=== PATIENT | female | born 1985 | race Caucasian/White ===

== ENCOUNTER 2017-06-02 11:32 | Emergency (ER) | payer BC ==
[2017-06-02] MEDS ORDERED: Tetan/Diph/Pertus SYR(Tdap)* 0.5 ML SYR(BOOSTRIX) use SYR IM ONE (12:03)
[2017-06-02] MEDS ORDERED: Lidocaine/Epineph/Tetraca SOL* (LET solution) 4 ML BTL TOPICAL ONE (12:13)
[2017-06-02] MEDS ORDERED: Lidocaine 2% 10 ML* VIAL INJ ONE (12:14)
[2017-06-02] MEDS ORDERED: Lidocaine 2% PF * 5 ML VIAL IV ONE (12:30)
--- NOTE | 2017-06-02 12:51 | RAD ---
HISTORY: Left forearm penetrating trauma COMPARISONS: None VIEWS: 2, Frontal and lateral views of the left forearm FINDINGS: BONE DENSITY: Normal. BONES: There is no displaced fracture. JOINTS: There is no arthropathy. ALIGNMENT: There is no dislocation. SOFT TISSUES: There is subcutaneous emphysema along the proximal medial forearm OTHER FINDINGS: None. IMPRESSION: SUBCUTANEOUS EMPHYSEMA. NO ACUTE OSSEOUS INJURY. IF SYMPTOMS PERSIST, RECOMMEND REPEAT IMAGING.
--- NOTE | 2017-06-02 13:25 | UC ---
Bite Injury/Animal HPI - HPI Summary HPI Summary: Patient present s/p dog bite from her dog, on the left forearm, puncture wound present, bleeding controlled, no numbness or decreased range of motion. She states she was at [employer] and he bite her. She reports the dog vaccine are up to date. - History of Current Complaint Chief Complaint: UCBiteInjury Stated Complaint: DOG BITE L ARM Time Seen by Provider: 06/02/17 12:02 Hx Obtained From: Patient Hx Last Menstrual Period: IUD ?: No Severity Currently: Moderate Severity Initially: Moderate Onset/Duration: Sudden Onset, Lasting Hours Type of Bite: Animal Has Animal Been Immunized?: Yes Character: Puncture, Full-Thickness, Abrasion/Laceration Associated Signs And Symptoms: Positive: Negative Animal Available for Observation: Yes Animal Control Notified: Yes - Risk Factors Infection/Sepsis Risk Factors: Negative - Allergies/Home Medications Allergies/Adverse Reactions: Allergies Allergy/AdvReac Type Severity Reaction Status Date / Time Codeine Allergy Rash Verified 06/02/17 11:58 Home Medications: Home Medications Levonorgestrel (Iud) [Mirena IUD] 1 applic VAGINAL ONCE 06/02/17 [History Confirmed 06/02/17] PMH/Surg Hx/FS Hx/Imm Hx Previously Healthy: Yes - Surgical History Surgical History: Yes Surgery Procedure, Year, and Place: Bilateral Club Foot repain - Family History Known Family History: Positive: None - Social History Occupation: Employed Full-time Lives: Alone Alcohol Use: Daily Substance Use Type: None Smoking Status (MU): Never Smoked Tobacco - Immunization History Most Recent Influenza Vaccination: Not UTD Most Recent Tetanus Shot: 04/2017 Review of Systems Constitutional: Negative Skin: Other - . Eyes: Negative ENT: Negative Respiratory: Negative Cardiovascular: Negative Gastrointestinal: Negative Genitourinary: Negative Motor: Negative Neurovascular: Negative Musculoskeletal: Negative Neurological: Negative Psychological: Negative All Other Systems Reviewed And Are Negative: Yes Physical Exam Triage Information Reviewed: Yes Appearance: Well-Appearing Vital Signs: Initial Vital Signs Temp 99.5 F 06/02/17 11:53 Pulse 73 06/02/17 11:53 Resp 16 06/02/17 11:53 BP 129/72 06/02/17 11:53 Pulse Ox 100 06/02/17 11:53 Vital Signs Reviewed: Yes Eye Exam: Normal ENT Exam: Normal Dental Exam: Normal Neck exam: Normal Neck: Positive: 1 Respiratory Exam: Normal Cardiovascular Exam: Normal Abdominal Exam: Normal Musculoskeletal Exam: Normal Neurological Exam: Normal Psychological Exam: Normal Skin Exam: Normal, Other - left forearm; inspection-puncture wound noted proximal aspect 2.5cm l x 1 cm w x 1 cm depth. superficial abrasions noted on distal forearm, bleeding controlled. bloodless wound bed inspection, no muscle, tenon, bone,or foreign body noted. vasc; no edema, neuro no deficits. rom itact in all planes Bite Injury Course/Dx - Course Course Of Treatment: Patient presents s/p dog bite from her own pet, the vaccines are up to date and the animal is available for observation and the incidence was reported. The patient tetanus is up to date. Xray of the forearm were obtained and were negative for fracture or foreign body, and the patient did not sence any foreign body in the wound. The wound was anestatized with let , and irrigated with NS and hebiclenze. The options of closure were discussed and included closure by one loose suture and seconday intention, and/or packing and closure by seconday intentions. The patient consented to closure by packing and secondary intention. Wound care instructions and signs and symptoms of infection were discussed and included keep area clean and dry, that she could shower as she nomally would, change the packing and apply dressing daily, if increased redness, swelling, drainage develop go directly to the emergency department. Patient verbalized undestanding of the discharge instructions and was in agreement with the discharge plan. - Differential Dx/Diagnosis Differential Diagnosis/HQI/PQRI: Puncture, Other - dog bite abrasions Provider Diagnoses: dog bite. abrasions. puncture wound Discharge - Discharge Plan Condition: Stable Disposition: HOME Prescriptions: Amoxicillin/Clavulanate TAB* [Augmentin TAB 875*] 875 mg PO BID #20 tab Patient Education Materials: Animal Bite (ED) Additional Instructions: You will need to have the wound re-checked in 2 days. If you develop redness, swelling, pain, discharge, or fever go directly to the ER.
== END 2017-06-02 13:19 | disposition home or self-care (01) ==
LOC: UCEAST 11:32
DX: S51.852A Open bite of left forearm, initial encounter (principal); W54.0XXA Bitten by dog, initial encounter; Y92.9 Unspecified place or not applicable
CPT/HCPCS: 99202; G0463; J2001

== ENCOUNTER 2021-06-20 12:02 | Inpatient (IN) ==
[~2021-06-20 12:02] MED LIST: Buffered Lidocaine 1% SYRIN 1 ml INTRADERM ONE; Lactated Ringers 1000 ml BAG 1,000 ML IV ONE
[2021-06-20 14:24] LABS: Urine Benzodiazepine Screen None Detected (None Detect); Urine Cannabinoids Screen None Detected (None Detect); Urine Opiates Screen None Detected (None Detect)
[2021-06-20] MEDS ORDERED: Dinoprostone 10 MG VAG.SUPP VAGINAL ONE (16:19)
[2021-06-20] MEDS ORDERED: Nalbuphine 10 MG/ML 1 ML VIAL IM ONE (21:28)
[2021-06-20] MEDS ORDERED: Promethazine INJ(RESTRICTED) 25 MG/ML 1 ml VIAL IM ONE (21:29)
[2021-06-21] MEDS: Lactated Ringers 1000 ml BAG 1,000 ML IV SCH (10:15)
[2021-06-21] MEDS: Oxytocin in LR 20 UNITS/1,000 ML BAG IVPB SCH (10:15)
[2021-06-21 10:52] LABS: ABS Basophils 0.1 10^3/ul (0-0.2); ABS Eosinophils 0.1 10^3/ul (0-0.6); ABS Lymphocytes 1.6 10^3/ul (1.0-4.8); ABS Monocytes 0.7 10^3/ul (0-0.8); ABS Neutrophils 10.8 10^3/ul (1.5-7.7); Eosinophil % 0.4 %; Hematocrit 37 % (35-47); Hemoglobin 12.4 g/dL (12.0-16.0); Lymphocyte % 12.3 %; Mean Corpuscular HGB Conc 34 g/dL (31-36); Mean Corpuscular Hemoglobin 31 pg (27-31); Mean Corpuscular Volume 91 fL (80-97); Mean Platelet Volume 9.8 fL (7.4-10.4); Platelet Count 212 10^3/uL (150-450); Red Blood Count 4.06 10^6 /uL (3.70-4.87); Red Cell Distribution Width 14 % (10-15); White Blood Count 13.2 10^3/uL (3.5-10.8)
[2021-06-22] MEDS: Lactated Ringers 1000 ml BAG 1,000 ML IV SCH (08:54)
[2021-06-22] MEDS: Oxytocin in LR 20 UNITS/1,000 ML BAG IVPB SCH (09:00)
[2021-06-23] MEDS ORDERED: Oxytocin in LR 20 UNITS/1,000 ML BAG IVPB SCH (06:37)
[2021-06-23] MEDS ORDERED: Methylergonovine 0.2 mg AMPULE 1 ml AMP IM ONE (06:42)
[2021-06-23] MEDS ORDERED: Lactated Ringers 1000 ml BAG 1,000 ML IV SCH (08:00)
[2021-06-23] MEDS: Dibucaine 1% OINT 28.35 GM TUBE PR PRN (08:26)
[2021-06-23] MEDS: Witch Hazel PAD JAR TOPICAL PRN (08:26)
[2021-06-23] MEDS ORDERED: Lidocaine 1% VIAL 10 MG/ML VIAL ONE (08:38)
[2021-06-23 12:33] LABS: Hematocrit 28 % (35-47); Hemoglobin 9.4 g/dL (12.0-16.0); Mean Corpuscular HGB Conc 34 g/dL (31-36); Mean Corpuscular Hemoglobin 31 pg (27-31); Mean Corpuscular Volume 90 fL (80-97); Mean Platelet Volume 8.9 fL (7.4-10.4); Platelet Count 204 10^3/uL (150-450); Red Blood Count 3.07 10^6 /uL (3.70-4.87); Red Cell Distribution Width 14 % (10-15); White Blood Count 20.7 10^3/uL (3.5-10.8)
[2021-06-24] MEDS: Witch Hazel PAD JAR TOPICAL PRN (08:54)
[2021-06-24] MEDS: Dibucaine 1% OINT 28.35 GM TUBE PR PRN (08:54)
[2021-06-24 09:07] LABS: ABS Basophils 0.1 10^3/ul (0-0.2); ABS Eosinophils 0.1 10^3/ul (0-0.6); ABS Lymphocytes 2.1 10^3/ul (1.0-4.8); ABS Monocytes 1.3 10^3/ul (0-0.8); ABS Neutrophils 13.5 10^3/ul (1.5-7.7); Eosinophil % 0.6 %; Hematocrit 25 % (35-47); Hemoglobin 8.5 g/dL (12.0-16.0); Lymphocyte % 12.2 %; Mean Corpuscular HGB Conc 33 g/dL (31-36); Mean Corpuscular Hemoglobin 30 pg (27-31); Mean Corpuscular Volume 90 fL (80-97); Mean Platelet Volume 8.8 fL (7.4-10.4); Platelet Count 201 10^3/uL (150-450); Red Blood Count 2.84 10^6 /uL (3.70-4.87); Red Cell Distribution Width 14 % (10-15); White Blood Count 17.1 10^3/uL (3.5-10.8)
[2021-06-25 09:11] VITALS: BP 120/72
== END 2021-06-25 11:25 | disposition home or self-care (01) | DRG 542 ==
LOC: MCHOBOUT 12:02 → MCHOB 12:43
PROVIDERS: ADMIT Midwife; ATTEND Midwife

== ENCOUNTER 2023-05-08 19:43 | Inpatient (IN) ==
[2023-05-08] MEDS ORDERED: Lidocaine 1% VIAL 10 MG/ML 30 ML VIAL INJ PRN (19:54)
[2023-05-08] MEDS ORDERED: Buffered Lidocaine 1% SYRIN 1 ml INTRADERM ONE (19:54)
[2023-05-08] MEDS ORDERED: Lactated Ringers 1000 ml BAG 1,000 ML IV ONE (19:54)
[2023-05-08] MEDS ORDERED: Promethazine INJ(RESTRICTED) 25 MG/ML 1 ml VIAL IV PRN (19:54)
[2023-05-08] MEDS ORDERED: Oxytocin in LR 20,000 MILLI.UNIT/1,000 ML BAG IV SCH (19:55)
[2023-05-08] MEDS ORDERED: Lactated Ringers 1000 ml BAG 1,000 ML IV SCH (20:00)
[2023-05-08 20:33] LABS: ABS Basophils 0.1 10^3/uL (0.0-0.1); ABS Eosinophils 0.1 10^3/uL (0.0-0.5); ABS Lymphocytes 2.2 10^3/uL (1.0-4.8); ABS Neutrophils 8.2 10^3/uL (1.5-7.6); ABS Nucleated RBC 0.01 10^3/ul; Eosinophil % 0.5 %; Hematocrit 33.7 % (35-45); Hemoglobin 11.7 g/dL (11.5-14.3); Lymphocyte % 19.3 %; Mean Corpuscular Hemoglobin 30.7 pg (27-33); Mean Corpuscular Hgb Conc 34.7 g/dL (31-36); Mean Corpuscular Volume 88.5 fL (80-97); Mean Platelet Volume 8.8 fL (7.5-11.2); Nucleated Red Blood Cells % 0.1 /100 WBC (0.0-0.4); Platelet Count 234 10^3/uL (150-450); Red Blood Count 3.81 10^6/uL (3.63-4.92); Red Cell Distribution Width 13.8 % (12-17); White Blood Count 11.6 10^3/uL (3.8-11.8)
[2023-05-08 20:55] LABS: Urine Benzodiazepine Screen None Detected (None Detect); Urine Cannabinoids Screen None Detected (None Detect); Urine Opiates Screen None Detected (None Detect)
[2023-05-09] MEDS ORDERED: Dibucaine 1% OINT 28.35 GM TUBE PR PRN (01:17)
[2023-05-09] MEDS ORDERED: Glycerin ADULT 2.4 gm SUPP PR PRN (01:17)
[2023-05-09] MEDS ORDERED: Witch Hazel PAD JAR TOPICAL PRN (01:17)
[2023-05-09] MEDS ORDERED: Lactated Ringers 1000 ml BAG 1,000 ML IV SCH (02:00)
[2023-05-09] MEDS ORDERED: Influenza vaccine *QUAD* *2023-24* 0.5 ML SYRINGE IM ONE (09:00)
[2023-05-10 07:10] LABS: ABS Basophils 0.1 10^3/uL (0.0-0.1); ABS Eosinophils 0.1 10^3/uL (0.0-0.5); ABS Lymphocytes 3.1 10^3/uL (1.0-4.8); ABS Neutrophils 9.3 10^3/uL (1.5-7.6); Eosinophil % 0.9 %; Hematocrit 31.4 % (35-45); Hemoglobin 10.8 g/dL (11.5-14.3); Lymphocyte % 22.7 %; Mean Corpuscular Hemoglobin 30.8 pg (27-33); Mean Corpuscular Hgb Conc 34.4 g/dL (31-36); Mean Corpuscular Volume 89.5 fL (80-97); Mean Platelet Volume 8.6 fL (7.5-11.2); Platelet Count 195 10^3/uL (150-450); Red Blood Count 3.51 10^6/uL (3.63-4.92); Red Cell Distribution Width 13.7 % (12-17); White Blood Count 13.6 10^3/uL (3.8-11.8)
[2023-05-10 08:30] VITALS: BP 110/71
== END 2023-05-10 13:25 | disposition home or self-care (01) | DRG 560 ==
LOC: MCHOBOUT 19:43 → MCHOB 19:49
PROVIDERS: ADMIT Advanced Practice Midwife; ATTEND Advanced Practice Midwife